=== PATIENT | female | born 2000 | race Caucasian/White ===

== ENCOUNTER 2019-07-30 19:45 | Emergency (ER) | payer SELFPAY ==
[2019-07-30] MEDS ORDERED: Ketorolac 10 MG Tab PO ONE (20:36)
--- NOTE | 2019-07-30 20:40 | CT ---
CT cervical spine Technique: Multiple axial sections were obtained from above C1 inferiorly to the mid T3 level. Reconstructed sagittal and coronal images were reviewed. Comparison: No prior cervical spine imaging. Findings: Incomplete arch of C1 is seen which is considered a normal variant. Vertebral body heights and disc spaces are maintained. Vertebral bodies and posterior arches are intact with no fracture being seen. No bony central or bony neural foraminal stenosis is seen. No traumatic disc herniation is definitely identified. No abnormal subluxation is seen. Impression: 1. Nothing acute is appreciated on CT study of the cervical spine. Diagnostic code #1 This report was dictated in [place] Standard Time
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
== END 2019-07-30 21:20 | disposition home or self-care (01) ==
LOC: MW.ED 19:45
DX: M54.2 Cervicalgia (principal); V89.2XXA Person injured in unspecified motor-vehicle accident, traffic, initial encounter
CPT/HCPCS: 72125; 99284; A9270